=== PATIENT | female | born 1970 | race American Indian/Alaskan Native ===

== ENCOUNTER 2021-03-30 10:46 | Emergency (ER) | payer MEDICARE, MEDICAID ==
[2021-03-30 14:38] LABS: Basophils % (Auto) 0.7 % (0.0-1.8); Eosinophils # (Auto) 0.1 K/mm3 (0.0-0.4); Eosinophils % (Auto) 1.5 % (0.0-4.3); Hematocrit 38.3 % (30.3-42.9); Hemoglobin 12.5 gm/dl (10.1-14.3); Lymphocytes # (Auto) 1.6 K/mm3 (1.2-5.4); Lymphocytes % (Auto) 24.9 % (13.4-35.0); Mean Corpuscular HGB Conc 33 % (30-34); Mean Corpuscular Volume 90 fl (79-97); Monocytes # (Auto) 0.4 K/mm3 (0.0-0.8); Monocytes % (Auto) 6.6 % (0.0-7.3); Platelet Count 260 K/mm3 (140-440); Red Blood Count 4.28 M/mm3 (3.65-5.03); Red Cell Distribution Width 13.4 % (13.2-15.2)
[2021-03-30 14:54] LABS: Alanine Aminotransferase 16 units/L (7-56); Albumin 4.1 g/dL (3.9-5); Blood Urea Nitrogen 66 mg/dL (7-17); Calcium 9.7 mg/dL (8.4-10.2); Hemolysis Index 75
[2021-03-30 15:07] LABS: BUN/Creatinine Ratio 9; Bilirubin,Direct < 0.2 mg/dL (0-0.2)
--- NOTE | 2021-03-30 17:22 | Event Note ---
ED Screening Note Date of service: 03/30/21 Time: 17:16 ED Screening Note: 51-year-old female patient with history of congestive heart failure, diabetes, hyperlipidemia, and end-stage renal disease presents to the emergency department with complaints of nausea, vomiting, and diarrhea since last week. Patient missed her scheduled dialysis appointment on 03/27/21 and her scheduled dialysis appointment this morning. States she did not go to dialysis "because she felt bad." General: Awake, appropriately interactive, no acute distress. Neck: Supple. Full range of motion intact. Cardiovascular: Normal peripheral perfusion. Pulmonary: No respiratory distress. Patient is speaking normally without use of accessory muscles. Skin: No apparent rashes or lesions. Neurological: No facial asymmetry. Speech is clear. Follows commands. Patient is alert and oriented. Musculoskeletal: Moves all four extremities spontaneously with normal range of motion. Psych: Cooperative. Appropriate mood and affect. I have greeted and performed a focused rapid initial assessment of this patient. A comprehensive ED assessment and evaluation of the patient, analysis of all test results, and completion of the medical decision-making process will be conducted by additional ED providers. This initial assessment/diagnostic orders/clinical plan/treatment(s) is/are subject to change based on patients health status, clinical progression and re-assessment. Further treatment and workup at subsequent clinical provider's discretion. Patient/guardian urged not to elope from the ED as their condition may be serious if not clinically assessed and managed.
--- NOTE | 2021-03-30 17:47 | XRay Report ---
CHEST 1 VIEW 03/30/2021 5:30 PM INDICATION / CLINICAL INFORMATION: ESRD. COMPARISON: 02/12/2015 FINDINGS: SUPPORT DEVICES: Permacath tip projects the level of the right atrium. HEART / MEDIASTINUM: No significant abnormality. LUNGS / PLEURA: No significant pulmonary or pleural abnormality. No pneumothorax. ADDITIONAL FINDINGS: No significant additional findings. IMPRESSION: 1. No acute findings. Signer Name: Js Maldonado MD Signed: 03/30/2021 5:42 PM Workstation Name: [email or web address]
[2021-03-30 18:51] LABS: Chol/HDL Ratio 3.3 %
--- NOTE | 2021-03-31 02:15 | Emergency Department Report ---
ED General Adult HPI - General Chief complaint: Nausea/Vomiting/Diarrhea Stated complaint: 2 MISSED DIALYSIS TREATMENTS/MH PUI?: No Time Seen by Provider: 03/31/21 02:14 Source: patient, RN notes reviewed, old records reviewed Mode of arrival: Ambulatory Limitations: No Limitations - History of Present Illness Initial comments: The patient was evaluated in the emergency department for symptoms described in the history of present illness. He/she was evaluated in the context of the global COVID-19 pandemic, which necessitated consideration that the patient might be at risk for infection with the virus that causes COVID-19. Institutional protocols and algorithms that pertain to the evaluation of patients at risk for COVID-19 are in a state of rapid change based on information released by regulatory bodies including the CDC and federal and state organizations. These policies and algorithms were followed during the pat ient's care in the emergency department. Please note that these policies, procedures and recommendations changed on a rapid basis. During the history and physical examination, I am chaperoned by Sydney Mclaughlin. The patient is a 51-year-old female. She is not known to myself previously. She states that her product test specialist is Dr. Cantu. She presents to the ER today with a complaint of resolved nausea, vomiting and diarrhea. She typically gets dialysis Monday, , Monday. Her last dialysis session not and that she attended was this past . She denies headache, neck pain, chest pain, and significant abdominal pain. She denies dysuria. She has abdominal cramping secondary to need to urinate. She denies loss of taste and smell. She denies cough and shortness of breath. She has not taken antibiotics recently. She states she is able to follow-up for her hemodialysis tomorrow, on April 01. She states that she lives locally with family. No recent antibiotic use. -: Gradual, days(s) Consistency: intermittent Improves with: none Worsens with: none - Related Data Home Medications Medication Instructions Recorded Confirmed Last Taken Aspirin [Aspirin TAB] 325 mg PO QDAY 02/12/15 02/12/15 02/11/15 Furosemide [Lasix] 80 mg PO QDAY 02/12/15 02/12/15 02/11/15 Metoprolol [Lopressor] 25 mg PO BID 02/12/15 02/12/15 02/11/15 Spironolactone 25 mg PO DAILY 02/12/15 02/12/15 02/11/15 amLODIPine [Norvasc] 5 mg PO DAILY 02/12/15 02/12/15 02/11/15 lisinopriL [Zestril] 40 mg PO QDAY 02/12/15 02/12/15 02/11/15 Previous Rx's Medication Instructions Recorded Last Taken Type Ondansetron [Zofran Odt] 4 mg PO Q8HR PRN #20 tab.doridis 03/31/21 Unknown Rx Allergies Allergy/AdvReac Type Severity Reaction Status Date / Time hydrocodone Allergy Unknown Verified 02/12/15 10:07 ED Review of Systems ROS: Stated complaint: 2 MISSED DIALYSIS TREATMENTS/MH Other details as noted in HPI Constitutional: denies: fever Eyes: denies: eye discharge ENT: denies: epistaxis Respiratory: denies: cough Cardiovascular: denies: chest pain Gastrointestinal: nausea, vomiting, diarrhea Genitourinary: denies: dysuria Neurological: denies: weakness Hematological/Lymphatic: denies: easy bleeding ED Past Medical Hx - Past Medical History Previous Medical History?: Yes Hx Hypertension: Yes Hx Congestive Heart Failure: Yes Hx Diabetes: Yes - Social History Smoking Status: Never Smoker Substance Use Type: None - Medications Home Medications: Home Medications Medication Instructions Recorded Confirmed Last Taken Type Aspirin [Aspirin TAB] 325 mg PO QDAY 02/12/15 02/12/15 02/11/15 History Furosemide [Lasix] 80 mg PO QDAY 02/12/15 02/12/15 02/11/15 History Metoprolol [Lopressor] 25 mg PO BID 02/12/15 02/12/15 02/11/15 History Spironolactone 25 mg PO DAILY 02/12/15 02/12/15 02/11/15 History amLODIPine [Norvasc] 5 mg PO DAILY 02/12/15 02/12/15 02/11/15 History lisinopriL [Zestril] 40 mg PO QDAY 02/12/15 02/12/15 02/11/15 History Ondansetron [Zofran Odt] 4 mg PO Q8HR PRN #20 tab.dwight 03/31/21 Unknown Rx ED Physical Exam - General Limitations: No Limitations, Other (Right-sided vascular access catheter noted on the anterior chest wall, without redness, pus, streaking discharge or tenderness.) General appearance: alert, in no apparent distress - Head Head exam: Present: atraumatic, normocephalic - Eye Eye exam: Present: normal appearance, EOMI. Absent: nystagmus - ENT ENT exam: Present: normal exam, normal orophraynx, mucous membranes moist, normal external ear exam - Neck Neck exam: Present: normal inspection, full ROM. Absent: tenderness, meningismus - Respiratory Respiratory exam: Present: normal lung sounds bilaterally. Absent: respiratory distress, wheezes, rales, rhonchi, stridor, decreased breath sounds - Cardiovascular Cardiovascular Exam: Present: regular rate, normal rhythm, normal heart sounds. Absent: bradycardia, tachycardia, irregular rhythm, systolic murmur, diastolic m urmur, rubs, gallop - GI/Abdominal GI/Abdominal exam: Present: soft. Absent: distended, tenderness, guarding, rebound, rigid, pulsatile mass - Extremities Exam Extremities exam: Present: normal inspection, full ROM, other (2+ pulses noted in the bilateral upper and lower extremities. There is no palpable cord. negative Homans sign. Muscular compartments are soft. The pelvis is stable.). Absent: pedal edema, calf tenderness - Back Exam Back exam: Present: normal inspection. Absent: tenderness, CVA tenderness (R), CVA tenderness (L), muscle spasm, paraspinal tenderness, vertebral tenderness - Neurological Exam Neurological exam: Present: alert, oriented X3, normal gait, other (No facial droop. Tongue midline. Extraocular movements intact bilaterally. Facial sensation intact to light touch in V1, V2, V3 distribution bilaterally. 5 and a 5 strength in 4 extremities. Sensation intact to light touch in 4 extremities.). Absent: motor sensory deficit - Psychiatric Psychiatric exam: Present: flat affect - Skin Skin exam: Present: warm, dry, intact, normal color. Absent: rash ED Course Vital Signs 03/30/21 03/31/21 03/31/21 12:10 02:31 02:34 Temperature 97.9 F Pulse Rate 76 77 78 Respiratory 20 13 Rate Blood Pressure 197/96 190/86 Blood Pressure 190/86 [Right] O2 Sat by Pulse 100 100 Oximetry ED Medical Decision Making - Lab Data Result diagrams: 03/30/21 13:49 03/30/21 13:49 Vital Signs 03/30/21 03/31/21 03/31/21 12:10 02:31 02:34 Temperature 97.9 F Pulse Rate 76 77 78 Respiratory 20 13 Rate Blood Pressure 197/96 190/86 Blood Pressure 190/86 [Right] O2 Sat by Pulse 100 100 Oximetry Lab Results 03/30/21 03/30/21 03/30/21 Range/Units 13:49 13:49 17:15 WBC 6.5 (4.5-11.0) K/mm3 RBC 4.28 (3.65-5.03) M/mm3 Hgb 12.5 (10.1-14.3) gm/dl Hct 38.3 (30.3-42.9) % MCV 90 (79-97) fl MCH 29 (28-32) pg MCHC 33 (30-34) % RDW 13.4 (13.2-15.2) % Plt Count 260 (140-440) K/mm3 Lymph % (Auto) 24.9 (13.4-35.0) % Beaver % (Auto) 6.6 (0.0-7.3) % Eos % (Auto) 1.5 (0.0-4.3) % Baso % (Auto) 0.7 (0.0-1.8) % Lymph # (Auto) 1.6 (1.2-5.4) K/mm3 Beaver # (Auto) 0.4 (0.0-0.8) K/mm3 Eos # (Auto) 0.1 (0.0-0.4) K/mm3 Baso # (Auto) 0.0 (0.0-0.1) K/mm3 Seg Neutrophils % 66.3 (40.0-70.0) % Seg Neutrophils # 4.3 (1.8-7.7) K/mm3 Sodium 139 (137-145) mmol/L Potassium 3.6 (3.6-5.0) mmol/L Chloride 99.8 (98-107) mmol/L Carbon Dioxide 22 (22-30) mmol/L Anion Gap 21 mmol/L BUN 66 H (7-17) mg/dL Creatinine 7.6 H (0.6-1.2) mg/dL Estimated GFR 7 ml/min BUN/Creatinine Ratio 9 % Glucose 121 H (65-100) mg/dL Calcium 9.7 (8.4-10.2) mg/dL Phosphorus 6.60 H (2.5-4.5) mg/dL Magnesium 2.60 H (1.7-2.3) mg/dL Total Bilirubin 0.20 (0.1-1.2) mg/dL Direct Bilirubin < 0.2 (0-0.2) mg/dL Indirect Bilirubin 0.0 mg/dL AST 20 (5-40) units/L ALT 16 (7-56) units/L Alkaline Phosphatase 70 (35-129) units/L Troponin T (0.00-0.029) ng/mL Total Protein 8.2 (6.3-8.2) g/dL Albumin 4.1 (3.9-5) g/dL Albumin/Globulin Ratio 1.0 % Triglycerides (2-149) mg/dL Cholesterol (50-199) mg/dL LDL Cholesterol Direct (50-130) mg/dL HDL Cholesterol (40-59) mg/dL Cholesterol/HDL Ratio % // Range/Units 17:15 WBC (4.5-11.0) K/mm3 RBC (3.65-5.03) M/mm3 Hgb (10.1-14.3) gm/dl Hct (30.3-42.9) % MCV (79-97) fl MCH (28-32) pg MCHC (30-34) % RDW (13.2-15.2) % Plt Count (140-440) K/mm3 Lymph % (Auto) (13.4-35.0) % Beaver % (Auto) (0.0-7.3) % Eos % (Auto) (0.0-4.3) % Baso % (Auto) (0.0-1.8) % Lymph # (Auto) (1.2-5.4) K/mm3 Beaver # (Auto) (0.0-0.8) K/mm3 Eos # (Auto) (0.0-0.4) K/mm3 Baso # (Auto) (0.0-0.1) K/mm3 Seg Neutrophils % (40.0-70.0) % Seg Neutrophils # (1.8-7.7) K/mm3 Sodium (137-145) mmol/L Potassium (3.6-5.0) mmol/L Chloride (98-107) mmol/L Carbon Dioxide (22-30) mmol/L Anion Gap mmol/L BUN (7-17) mg/dL Creatinine (0.6-1.2) mg/dL Estimated GFR ml/min BUN/Creatinine Ratio % Glucose (65-100) mg/dL Calcium (8.4-10.2) mg/dL Phosphorus (2.5-4.5) mg/dL Magnesium (1.7-2.3) mg/dL Total Bilirubin (0.1-1.2) mg/dL Direct Bilirubin (0-0.2) mg/dL Indirect Bilirubin mg/dL AST (5-40) units/L ALT (7-56) units/L Alkaline Phosphatase (35-129) units/L Troponin T 0.071 H (0.00-0.029) ng/mL Total Protein (6.3-8.2) g/dL Albumin (3.9-5) g/dL Albumin/Globulin Ratio % Triglycerides 105 (2-149) mg/dL Cholesterol 198 (50-199) mg/dL LDL Cholesterol Direct 131 H (50-130) mg/dL HDL Cholesterol 60 H (40-59) mg/dL Cholesterol/HDL Ratio 3.30 % - EKG Data -: EKG Interpreted by Me EKG shows normal: sinus rhythm Rate: normal - EKG Data 03/31/21 03:10 EKG interpreted at 02: 4 0 Sinus rhythm, 80 bpm, normal P wave axis, left axis deviation, left ventricular hypertrophy, motion artifact, QTC 45 ms. This is an abnormal EKG. This is not a STEMI no priors available for comparison at this time. - Medical Decision Making Differential diagnosis, including but not limited to: Encounter for medical screening examination, chronic hypertension, end-stage renal disease, electrolyte derangement, enteritis Assessment and plan: 51-year-old female, who was afebrile, with reassuring vital signs without active vomiting (hypertension/elevated blood pressure reviewed and appreciated, not acutely symptomatic, please reference the [employer] clinical policy on asymptomatic hypertension), with a primary complaint of resolved nausea, vomiting and diarrhea. Abdomen soft and benign, without rebound, guarding or peritoneal signs. Patient given oral medications, which she tolerated without active vomiting. Laboratory studies, including troponin were sent prior to my personal evaluation of this patient. Elevated troponin is likely a type II troponin leak. I am not concerned about atypical presentation of acute coronary syndrome in this patient, especially given history, physical, and EKG. Patient can follow-up with her outpatient primary care doctor and/or product test specialist for her chronic hypertension, and her end-stage renal disease. She is able to follow-up for her dialysis tomorrow, and reports reliability to return to this emergency room if she develops any new, worsened or different symptoms. She is awake, alert, oriented, sober, and exhibits decision-making capacity at this time. Critical care attestation.: If time is entered above; I have spent that time in minutes in the direct care of this critically ill patient, excluding procedure time. ED Disposition Clinical Impression: End stage renal disease on dialysis, Elevated blood pressure reading, History of nausea and vomiting, History of diarrhea Disposition: DC- TO HOME OR SELFCARE Is pt being admited?: No Does the pt Need Aspirin: No Condition: Good Additional Instructions: Please continue current outpatient medications. Please follow-up with your outpatient hemodialysis session tomorrow, April 01, 2021. Please avoid consumption of Motrin, ibuprofen, Naprosyn, Aleve. Please follow-up with your outpatient primary care doctor or product test specialist within the next 3 to 5 days for repeat checkup and evaluation. Patient was found to have high blood pressure today in the emergency room. Patient should be started to take her outpatient home blood pressure medications. Long-term complications of hypertension elevated blood pressure include stroke, heart attack, disability, paralysis, loss of quality of life. Patient may take Tylenol/acetaminophen [id number] as needed for physical pain, and take the prescribed nausea medication as needed. Please return to the emergency room right away with new pain, worsened pain, migration of pain, projectile vomiting, change in mental status, confusion, inability to tolerate liquid feeds, new, worsened or different symptoms not present on the initial emergency room evaluation. Prescriptions: Ondansetron [Zofran Odt] 4 mg PO Q8HR PRN #20 tab.rapdis PRN Reason: Nausea Referrals: KIAH ALONSO MD [Primary Care Provider] - 3-5 Days ELLIOT CANTU MD [Staff Physician] - 3-5 Days
[2021-03-31] MEDS ORDERED: amLODIPine 5 MG TAB PO ONE (02:23)
[2021-03-31] MEDS ORDERED: ACETAMINOPHEN 325 MG TAB PO ONE (02:23)
[2021-03-31] MEDS ORDERED: ONDANSETRON 4 MG ODT TAB PO ONE (02:23)
[2021-03-31 04:19] VITALS: BP 184/79
--- NOTE | 2021-04-01 10:57 | Electrocardiograph Report ---
[facility] Test Date: 2021-03-31 Test Time: 02:40:27 Pat Name: VJ VEGA Department: Room: Gender: F Recovery Advocate: MARTIN : [id number] Requested By: LANE ARMENDARIZ Order Number: [id number] Reading MD: Catie Lopez Measurements Intervals Alva Rate: 80 P: 58 MD: 157 QRS: 9 QRSD: 103 T: 113 QT: 421 QTc: 485 Interpretive Statements Sinus rhythm Abnormal T, consider ischemia, lateral leads No previous ECG available for comparison Electronically Signed On 04-01-2021 10:56:44 EDT by Catie Lopez
== END 2021-03-31 04:32 | disposition home or self-care (01) ==
LOC: ED 10:46
DX: I13.2 Hypertensive heart and chronic kidney disease with heart failure and with stage 5 chronic kidney disease, or end stage renal disease (principal); E11.22 Type 2 diabetes mellitus with diabetic chronic kidney disease; N18.6 End stage renal disease; Z99.2 Dependence on renal dialysis; R11.2 Nausea with vomiting, unspecified; R19.7 Diarrhea, unspecified; Z88.5 Allergy status to narcotic agent
CPT/HCPCS: 36415; 71045; 80048; 80061; 80076; 83735; 84100; 84484; 85025; 93005; 99284; Q0162